=== PATIENT | male | born 1960 | race Caucasian/White ===

== ENCOUNTER 2019-11-14 16:06 | Emergency (ER) | payer BC, SELFPAY ==
[2019-11-14 16:06] VITALS: O2SAT 30
[2019-11-14 16:08] VITALS: BP 56/22; O2SAT 66; BMI 27.9
--- NOTE | 2019-11-14 16:17 | W.ED.CPR ---
HPI - CPR General: Chief Complaint: Cardiac Arrest/CPR Stated Complaint: CPR IN PROGRESS Time Seen by Provider: 11/14/19 16:16 Source: EMS Mode of arrival: EMS Limitations: physical limitation History of Present Illness: HPI narrative: 59-year-old male who was found down and had CPR performed at the scene. EMS arrived patient was in V. fib. Patient was given multiple doses of epinephrine and shocked in route. Patient has been down without a pulse for over 30 minutes. Patient currently has an eye gel in place for respirations. He has been unresponsive the whole time per EMS. No known history. Patient had status post fall and does have a contusion along with bleeding from the head Review of Systems General: Reports: ROS unobtainable due to medical condition Physical Exam Const: COMMON NORMALS: negative for patient oriented x3 and negative for alert OTHER: unresponsive. cpr in progress HENMT: OTHER: contusion to frontal scalp Eye: OTHER: pupils fixed and dilated Neck/C-Spine: COMMON NORMALS: no lymphadenopathy Chest: COMMONS NORMALS: normal inspection of the chest Resp: OTHER: ventilated with igel device. good breath sounds bilateral. Cardio: OTHER: cpr currently. GI: COMMON NORMALS: Normal to inspection, nondistended, normoactive bowel sounds present Extremity: COMMON NORMALS: normal to inspection Neuro: COMMON NORMALS: negative for patient oriented x3 SENSORIUM/ORIENTATION: No alert Psych: COMMON NORMALS: negative for mental status grossly normal Skin: COMMON NORMALS: no rashes or lesions noted GENERAL SKIN EXAM: no rashes or lesions noted Course Vital Signs: Vital signs: Vital Signs Blood Pressure 56/22 11/14/19 16:08 Pulse Oximetry 66 L 11/14/19 16:08 MDM - Cardiac Arrest/CPR MDM Narrative: Medical decision making narrative: Patient arrived ongoing CPR. Patient was shocked again here with V. fib. Patient given amiodarone along with epinephrine. Patient went to [facility]. Did ultrasound that showed no cardiac activity. Patient was pronounced at 1614. Discharge Plan Discharge Patient Disposition: Clinical Impression: Cardiac arrest Condition: Stable Referrals: French Escoto Jr, MD [Primary Care Provider] - Coding Level of Care Code ED Ambulatory Services Representative for Lynette Lopez
--- NOTE | 2019-11-14 16:27 | PC.NURSE ---
SPOKE WITH AXEL IBRAHIM HAMILTON OIL WELL DRILLER. BODY IS RELEASED.
--- NOTE | 2019-11-14 18:59 | PC.NURSE ---
pt came in by EMS-CPR in progress-code continued-see code sheet-TOD [id number]
--- NOTE | 2019-11-14 19:44 | PC.CHAP ---
Pastoral Care Encounter/Spiritual Assessment Type of Contact [] Declined gasket inspector visit [] Patient/Family/Request visit [] Outpatient visit [] Follow-up visit [] Physician referral [] Code/Alert [] Routine visit [] Staff referral [] Actively dying [] Patient sleeping [x] Family support [x] [] Out of room [] Palliative care [] [] Receiving care in room [] Pre-surgical visit [] Trauma [] Long length of stay [] ICU visit [] Other: Relational/Emotional Strength [] Patient feels connected with others/family/visitors/staff [] Distress [] Loneliness/isolation [] Abandonment Spirituality of Patient [] Person of Nicolasa [] Attends Christian of their Nicolasa [] Believes in Prayer [] Reads Bible or Anabaptist materials [] There are Spiritual issues to be addressed Fertilizer Loader Interventions [x] Prayer [x] Active listening [x] Non-anxious presence [x] Spiritual/emotional support [x] Crisis/trauma care [x] Spiritual counseling [x] Bereavement support [] Provided bereavement packet [] Provided Bible/devotional materials [] Provided toy/stuffed animal, coloring book to patient or family member [] Provided Communion [] Anointing/[place] [] Salvation [] Completed spiritual assessment [] Other: Impact on Illness or Injury [] Angry [] Fearful [] Anxious [] Often cries [] Exhaustion [] Unable to work [] Unable to attend mandaeism [] Unable to walk/stand [] Unable to read [] Unable to drive [] Unable to eat/drink [] Unable to sleep [] Unable to be with family [] Patient intubated [] Other: Summary Called to ER to support family upon of patient. Fertilizer Loader prayed with and family several times and offered with of comfort. Time spent with patient 150 min.
== END 2019-11-14 20:07 | disposition expired ==
LOC: ER 16:48
PROVIDERS: Emergency Provider Emergency Medicine; PCP Family Medicine
DX: I46.9 Cardiac arrest, cause unspecified (principal)
CPT/HCPCS: 12345; 99282; 99284; J0171; J0282